=== PATIENT | male | born 1950 | race Caucasian/White ===

== ENCOUNTER 2016-10-11 15:05 | Emergency (ER) | payer MEDICARE, OTHER ==
--- NOTE | 2016-10-11 15:24 | UC ---
Skin Complaint HPI - HPI Summary HPI Summary: patient was mowing the lawn this morning and found a tick on the upper left arm after. - History of Current Complaint Time Seen by Provider: 10/11/16 15:20 Stated Complaint: TICK Hx Obtained From: Patient Onset/Duration: Sudden Onset, Lasting Hours Skin Exposure Onset/Duration: Hours Ago Timing: Constant Onset Severity: Mild Current Severity: Mild Location: Discrete - upper left arm Character: Redness Aggravating: Nothing Alleviating: Nothing Related History: Insect Bite/Sting Review of Systems Constitutional: Negative Skin: Other - tick Eyes: Negative ENT: Negative Respiratory: Negative Cardiovascular: Negative Gastrointestinal: Negative Genitourinary: Negative Motor: Negative Neurovascular: Negative Musculoskeletal: Negative Neurological: Negative Psychological: Negative All Other Systems Reviewed And Are Negative: Yes PMH/Surg Hx/FS Hx/Imm Hx Previously Healthy: Yes Cardiovascular History Of: Reports: Hypertension - Family History Known Family History: Negative: Cardiac Disease, Hypertension Physical Exam Triage Information Reviewed: Yes Appearance: Well-Appearing, Well-Nourished, Pain Distress Vital Signs Reviewed: Yes Eye Exam: Normal ENT Exam: Normal ENT: Positive: Hearing grossly normal, Pharynx normal, TMs normal Dental Exam: Normal Neck exam: Normal Neck: Positive: Supple, Nontender, No Lymphadenopathy Respiratory Exam: Normal Respiratory: Positive: Chest non-tender, Lungs clear, Normal breath sounds Cardiovascular Exam: Normal Cardiovascular: Positive: RRR, No Murmur, Pulses Normal Abdominal Exam: Normal Abdomen Description: Positive: Nontender, No Organomegaly, Soft Bowel Sounds: Positive: Present Musculoskeletal Exam: Normal Musculoskeletal: Positive: Strength Intact, ROM Intact, No Edema Neurological Exam: Normal Neurological: Positive: Alert, Muscle Tone Normal Psychological Exam: Normal Skin: Positive: Other - small non engorged tick in left upper arm Course/Dx - Course Course Of Treatment: hx obtained, exam performed, meds reviewed, tick removed. - Diagnoses Provider Diagnoses: tick bite Discharge - Discharge Plan Condition: Stable Disposition: HOME Patient Education Materials: Tick Bite (ED) Additional Instructions: Keep monitoring for ticks, see enclosed paperwork for signs of lyme disease follow up with any further issues.
[2016-10-11 15:30] VITALS: BP 142/82
== END 2016-10-11 15:35 | disposition home or self-care (01) ==
LOC: UCCORT 15:05
DX: S40.862A Insect bite (nonvenomous) of left upper arm, initial encounter (principal); W57.XXXA Bitten or stung by nonvenomous insect and other nonvenomous arthropods, initial encounter; Y93.9 Activity, unspecified; Y92.9 Unspecified place or not applicable; I10 Essential (primary) hypertension
CPT/HCPCS: 99201; G0463

== ENCOUNTER → 2018-10-04 07:09 | Day surgery (SDC) | payer MEDICARE ==
[~2018-10-04 07:09] MED LIST: Clopidogrel TAB* 300 MG ONE; Flumazenil* 0.1 MG/ML 5 ML MDV ONE; Heparin 2 UNITS/ML IVPREMIX* 3,000 UNIT/1,500 ML BAG IV ONE; Heparin(*) 1000 UNIT/ML 10 ML VIAL CATH LAB IV ONE; Iodixanol 320 (CONTRAST) 100 ML SDV ONE; Iohexol 350 (CONTRAST) 200 ML MDV IV ONE; LORazepam TAB(*) 1 MG ONE; Lidocaine 1% INJ* 10 MG/ML 30 ML SDV ONE; Midazolam* 1 MG/ML 5 ML VIAL (5 MG) ONE; Naloxone* 0.4 MG/ML 1 ML VIAL ONE; fentaNYL* 50 MCG/ML 2 ML VIAL (100 MCG VIAL) ONE; nitroGLYCERIN DRIP* 25,000 MCG/250 ML BTL ONE
[2018-10-04 08:17] LABS: Calcium 9.5 mg/dL (8.6-10.3); EGFR Non-African American 153.7 (>60); Potassium 3.5 mmol/L (3.5-5.0)
[2018-10-04 14:33] VITALS: BP 152/72
== END | disposition home or self-care (01) ==
LOC: CHICATH 07:09
PROVIDERS: ATTEND Radiology Diagnostic Radiology
DX: I70.221 Atherosclerosis of native arteries of extremities with rest pain, right leg (principal); Z87.891 Personal history of nicotine dependence; I10 Essential (primary) hypertension
CPT/HCPCS: 36415; 76937; 80048; 85347; 99156; 99157; A9270-GY; C1725; C1760; C1769; C1887; C1894; J1644; J2250; J2310; J3010

== ENCOUNTER → 2018-12-27 | Day surgery (SDC) | payer MEDICARE ==
[~2018-12-27] MED LIST changes: -Clopidogrel TAB* 300 MG ONE; -Flumazenil* 0.1 MG/ML 5 ML MDV ONE; +HYDROmorphone INJ1* 1 MG/ML SYRINGE ONE; +LORazepam TAB(*) 1 MG PO ONE; +NS 0.9% 1000 ML** 1,000 ML IV SCH; -Naloxone* 0.4 MG/ML 1 ML VIAL ONE; +VERAPAMIL 2.5 MG/ML 2 ML VIAL ** 5 mg/2 ml ONE; +ceFAZolin 1 GM* X ONE DOSE (AddVan) IVPB
[2018-12-27 08:12] LABS: ABS Eosinophils 0.2 10^3/ul (0-0.6); ABS Lymphocytes 1.1 10^3/ul (1.0-4.8); ABS Monocytes 0.9 10^3/ul (0-0.8); ABS Neutrophils 7.8 10^3/ul (1.5-7.7); Eosinophil % 1.7 %; Hematocrit 44 % (42-52); Hemoglobin 15.5 g/dL (14.0-18.0); Lymphocyte % 11.1 %; Mean Corpuscular HGB Conc 35 g/dL (31-36); Mean Corpuscular Hemoglobin 36 pg (27-31); Mean Corpuscular Volume 103 fL (80-94); Mean Platelet Volume 7.1 fL (7.4-10.4); Platelet Count 505 10^3/uL (150-450); Red Blood Count 4.26 10^6 /uL (4.18-5.48); Red Cell Distribution Width 13 % (10-15); White Blood Count 9.9 10^3/uL (3.5-10.8)
[2018-12-27 08:15] LABS: INR 0.98 (0.82-1.09)
[2018-12-27 08:23] LABS: BUN/Creatinine Ratio 17.3 (8-20); Blood Urea Nitrogen 9 mg/dL (6-24); CO2 Carbon Dioxide 31 mmol/L (22-32); Calcium 9.8 mg/dL (8.6-10.3); Chloride 93 mmol/L (101-111); EGFR African American 190.1 (>60); EGFR Non-African American 157.1 (>60); Glucose 124 mg/dL (70-100); Sodium 130 mmol/L (135-145)
[2018-12-27 08:36] LABS: Anion Gap 6 mmol/L (2-11)
--- NOTE | 2018-12-27 17:02 | PN ---
Progress Note - Progress Note Date of Service: 12/27/18 SOAP: Subjective: c/o back pain from laying flat, but not more than baseline. No pain in right groin or right leg. No CP. No SOB. 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 Revascularization and planned angioplasty/stenting was unsuccessful. Plan: 1. Bedrest with right leg straight until 1800. 2. IR clinic nurse will call patient 12/29/18 to check up on any signs of hematoma or other complication. 3. As discussed with patient and his [id number] Joanne a referral will be made to [facility] to be evaluated for bypass. 4. Patient advised to continue and finish his current Plavix 75 mg PO daily prescription but he does not have to refill it.
[2018-12-27 17:51] VITALS: BP 119/58
== END | disposition home or self-care (01) ==
LOC: CHICATH 06:49
PROVIDERS: ATTEND Radiology Diagnostic Radiology
DX: I70.221 Atherosclerosis of native arteries of extremities with rest pain, right leg (principal); I10 Essential (primary) hypertension; N40.0 Benign prostatic hyperplasia without lower urinary tract symptoms; Z87.891 Personal history of nicotine dependence; Z79.01 Long term (current) use of anticoagulants
CPT/HCPCS: 36415; 76937; 80048; 85025; 85610; 99156; 99157; A9270-GY; C1769; C1887; C1894; J0690; J1170; J1644; J2250; J3010

== ENCOUNTER 2019-04-04 13:52 | Emergency (ER) | payer MEDICARE ==
[2019-04-04 14:36] VITALS: BP 144/74
--- NOTE | 2019-04-04 14:50 | UC ---
Abdominal Pain Male HPI - HPI Summary HPI Summary: 68 yo male noted bulge left inguinal region this AM when he coughed Hurts when he coughs or strains no UTI symptoms no f/c Hx PVD states he has had a rapid heart rate since January - History of Current Complaint Chief Complaint: UCAbdominalPain Stated Complaint: LOWER ABD PAIN Hx Obtained From: Patient Onset/Duration: Sudden Onset Timing: Constant Severity Initially: Moderate Severity Currently: None Pain Intensity: 0 Pain Scale Used: 0-10 Numeric Location: Other - discrete left inguinal Radiates: No Character: Aching Aggravating Factor(s): Other - coughs/train Associated Signs And Symptoms: Negative: Diaphoresis, Fever, Cough, Chest Pain, Dizzy, Back Pain, Constipation, Blood in Stool, Urinary Symptoms, Decreased Appetite, Nausea, Vomiting, Diarrhea, Penile Discharge Male Torso: 1 - lump here - Allergies/Home Medications Allergies/Adverse Reactions: Allergies Allergy/AdvReac Type Severity Reaction Status Date / Time No Known Allergies Allergy Verified 04/04/19 14:29 PMH/Surg Hx/FS Hx/Imm Hx Previously Healthy: Yes Cardiovascular History: Hypertension GI/ History: Other - peripheral vascular disease - Surgical History Surgical History: Yes Surgery Procedure, Year, and Place: VASCULAR SFA - Family History Known Family History: Negative: Cardiac Disease, Hypertension - Social History Alcohol Use: Daily Alcohol Amount: 4-5 Substance Use Type: None Smoking Status (MU): Former Smoker When Did the Patient Quit Smoking/Using Tobacco: 2007 Review of Systems All Other Systems Reviewed And Are Negative: Yes Skin: Positive: Negative Eyes: Positive: Negative ENT: Positive: Negative Respiratory: Positive: Negative Cardiovascular: Positive: Negative Gastrointestinal: Positive: Abdominal Pain Genitourinary: Positive: Negative Motor: Positive: Negative Neurovascular: Positive: Negative Musculoskeletal: Positive: Negative Neurological: Positive: Negative Psychological: Positive: Negative Physical Exam Triage Information Reviewed: Yes Appearance: Well-Appearing, No Pain Distress, Well-Nourished Vital Signs: Initial Vital Signs Temp 98.4 F 04/04/19 14:32 Pulse 114 04/04/19 14:32 Resp 16 04/04/19 14:32 BP 144/74 04/04/19 14:32 Pulse Ox 97 04/04/19 14:32 Vital Signs Reviewed: Yes Eyes: Positive: Conjunctiva Clear ENT: Positive: Hearing grossly normal. Negative: Nasal congestion, Nasal drainage, Tonsillar swelling, Tonsillar exudate, Hoarse voice Neck: Positive: Supple, Nontender Respiratory: Positive: Lungs clear, Normal breath sounds, No respiratory distress, No accessory muscle use, Respiratory distress Cardiovascular: Positive: RRR, Tachycardia. Negative: No Murmur Abdomen Description: Positive: Nontender, No Organomegaly, Hernia @ - left inguinal/fully reduces when supine. Negative: CVA Tenderness (R), CVA Tenderness (L), Distended, Guarding Bowel Sounds: Positive: Present Musculoskeletal: Positive: ROM Intact, No Edema Neurological: Positive: Alert Psychological Exam: Normal Skin Exam: Normal Abd Pain Male Course/Dx - Differential Dx/Clinical Impression Provider Diagnosis: Tachycardia, Left inguinal hernia Discharge ED - Sign-Out/Discharge Documenting (check all that apply): Patient Departure All imaging exams completed and their final reports reviewed: No Studies - Discharge Plan Condition: Stable Disposition: HOME Patient Education Materials: Inguinal Hernia (ED) Referrals: Cristobal Wilson PA [Primary Care Provider] - 3 Days (your pulse is faster than normal and needs further evaluation) Additional Instructions: you have a left inguinal hernia I suggest you see a surgeon first available appt to ER for new or worsening symptoms - Billing Disposition and Condition Condition: STABLE Disposition: Home
== END 2019-04-04 14:57 | disposition home or self-care (01) ==
LOC: UCCORT 13:52
DX: K40.90 Unilateral inguinal hernia, without obstruction or gangrene, not specified as recurrent (principal); R00.0 Tachycardia, unspecified; I10 Essential (primary) hypertension; Z87.891 Personal history of nicotine dependence
CPT/HCPCS: 99211; G0463

== ENCOUNTER 2019-04-25 10:40 | Emergency (ER) | payer MEDICARE ==
[2019-04-25 11:35] VITALS: BP 143/76
--- NOTE | 2019-04-25 12:31 | UC ---
Skin Complaint HPI - HPI Summary HPI Summary: Pt presents with c/o tender "bite" on left posterior thigh that began ~ 1 week ago. Pt went hunting last week but can not recall if he was bit by insect/tick or injured by thorn or any thing else. Pt noticed tender area on left posterior thigh ~ 1 day ago. - History of Current Complaint Chief Complaint: UCSkin Time Seen by Provider: 04/25/19 12:16 Stated Complaint: UNKNOWN INSECT BITE Hx Obtained From: Patient Onset/Duration: Gradual Onset, Still Present, Worse Since - onset Skin Exposure Onset/Duration: Days Ago Timing: Constant Onset Severity: Mild Current Severity: Mild Pain Intensity: 0 Location: Discrete Character: Pain, Redness, Painful Aggravating Factor(s): Touch Alleviating Factor(s): Nothing, Unknown Associated Signs & Symptoms: Positive: Tenderness Related History: Insect Bite/Sting, Possible Reaction to: Environmental Exposure - Allergy/Home Medications Allergies/Adverse Reactions: Allergies Allergy/AdvReac Type Severity Reaction Status Date / Time No Known Allergies Allergy Verified 04/25/19 11:30 PMH/Surg Hx/FS Hx/Imm Hx Previously Healthy: Yes - Surgical History Surgical History: Yes Surgery Procedure, Year, and Place: VASCULAR SFA - Family History Known Family History: Negative: Cardiac Disease, Hypertension - Social History Occupation: Retired Lives: Alone Alcohol Use: Daily Alcohol Amount: 4-5 Substance Use Type: None Smoking Status (MU): Former Smoker Have You Smoked in the Last Year: No When Did the Patient Quit Smoking/Using Tobacco: 2007 Review of Systems All Other Systems Reviewed And Are Negative: Yes Constitutional: Positive: Negative Skin: Positive: Other - tender posterior left thig, mid medidal thigh, pt used mirror to see area Eyes: Positive: Negative ENT: Positive: Negative Respiratory: Positive: Negative Cardiovascular: Positive: Negative Gastrointestinal: Positive: Negative Genitourinary: Positive: Negative Motor: Positive: Negative Neurovascular: Positive: Negative Musculoskeletal: Positive: Negative Neurological: Positive: Negative Psychological: Positive: Negative Is Patient Immunocompromised?: No Physical Exam Triage Information Reviewed: Yes Appearance: Well-Appearing, Thin Vital Signs: Initial Vital Signs Temp 98.6 F 04/25/19 11:31 Pulse 108 04/25/19 11:31 Resp 18 04/25/19 11:31 BP 143/76 04/25/19 11:31 Pulse Ox 97 04/25/19 11:31 Vital Signs Reviewed: Yes Eye Exam: Normal ENT: Positive: Hearing grossly normal Dental Exam: Normal Neck exam: Normal Respiratory: Positive: No respiratory distress Musculoskeletal Exam: Normal Neurological Exam: Normal Psychological Exam: Normal Skin Exam: Other - small flor sized circular area on mid, medial posterior left thigh, iwth pale center and erythematous circular area surrounding pale center, firm but not flucuant mass no discharge, no FB Possibly, head of tick. Course/Dx - Course Course Of Treatment: Pt recalls scratching back of his leg after hunting ~ 1 week ago and thought he may have felt something but dismissed it. It may have been a tick per pt. - Differential Diagnoses - Skin Complaint Differential Diagnoses: Abscess, Cellulitis, Tick Born Illness - Diagnoses Provider Diagnosis: Infected wound Discharge ED - Sign-Out/Discharge Documenting (check all that apply): Patient Departure All imaging exams completed and their final reports reviewed: No Studies - Discharge Plan Condition: Stable Disposition: HOME Prescriptions: DOXYcycline CAP(*) [DOXYcycline 100MG CAP(*)] 100 mg PO Q12H #20 cap Patient Education Materials: Wound Infection (ED) Referrals: Cristobal Wilson PA [Primary Care Provider] - 3 Days - Billing Disposition and Condition Condition: STABLE Disposition: Home
== END 2019-04-25 12:42 | disposition home or self-care (01) ==
LOC: UCCORT 10:40
DX: S80.812A Abrasion, left lower leg, initial encounter (principal); Z87.891 Personal history of nicotine dependence; X58.XXXA Exposure to other specified factors, initial encounter; Y93.89 Activity, other specified; Y92.9 Unspecified place or not applicable
CPT/HCPCS: 99212; G0463